=== PATIENT | female | born 1970 | race Caucasian/White ===

== ENCOUNTER 2020-12-15 13:33 | Inpatient (IN) | payer BC ==
[2020-12-15 15:04] LABS: #Lymphocytes 0.5 thou/uL (1.20-3.40); #Monocytes 0.3 thou/uL (0.11-0.59); #Neutrophils 1.6 thou/uL (1.40-6.50); %Basophils 1.8 % (0.0-1.0); %Eosinophils 1.4 % (0.0-10.0); %Lymphocytes 19.2 % (21.0-51.0); %Monocytes 12.8 % (0.0-10.0); %Neutrophils 64.8 % (42.0-75.0); Hemoglobin 13.4 g/dL (12.0-16.0); Mean Corpuscular HGB CONC 31.4 g/dL (32.0-36.0); Mean Corpuscular Hemoglobin 29.7 pg (27.0-31.0); Mean Corpuscular Volume 94.6 fL (78.0-98.0); Platelet Count 182 thou/uL (130-400); Red Blood Cell (RBC) Count 4.52 mill/uL (4.20-5.40); White Blood Cell (WBC) Count 2.5 thou/uL (4.8-10.8)
[2020-12-15 15:19] LABS: ALT (SGPT) 20 U/L (8-55); AST (SGOT) 22 U/L (5-34); Albumin 4.2 g/dL (3.5-5.0); Alkaline Phosphatase 120 U/L (40-110); Anion Gap 16 mmol/L (10-20); BUN (Urea Nitrogen) 10 mg/dL (9.8-20.1); Bilirubin, Total 0.4 mg/dL (0.2-1.2); Calc. Creatinine Clearance 0 mL/min (70-130); Calcium 8.7 mg/dL (7.8-10.44); Carbon Dioxide 24 mmol/L (22-29); Chloride 102 mmol/L (98-107); Globulin 2.8 g/dL (2.4-3.5); Glucose 97 mg/dL (70-105); Potassium 3.4 mmol/L (3.5-5.1); Sodium 139 mmol/L (136-145)
[2020-12-15] MEDS ORDERED: cefTRIAXone\\ROCEPHIN 1 GM VIAL ONE (15:35)
[2020-12-15] MEDS ORDERED: Sodium Chloride 0.9% 100 ML ONE (15:35)
[2020-12-15] MEDS ORDERED: Azithromycin 500 MG VIAL ONE (16:26)
[2020-12-15] MEDS ORDERED: Haloperidol Lactate 5 MG/ML VIAL ONE (17:17)
[2020-12-15 17:52] LABS: SARS-CoV-2 NAA Rapid Test DETECTED (NotDetected)
[2020-12-15 19:18] LABS: Bilirubin Negative (Negative); Blood, Urine Negative (Negative); Clarity Clear (Clear); Glucose, Urine (Dipstick) Negative (Negative); Ketone, Urine 40 mg/dL (Negative); Leukocyte Negative (Negative); Nitrite Negative (Negative); Protein, Urine (Dipstick) Negative (Neg-Trace); Specific Gravity, Urine 1.015 (1.005-1.030); Urobilinogen 0.2 mg/dL (Less than 2)
[2020-12-15 19:19] LABS: Pregnancy Test - Urine (BHCG) Negative (Negative)
[2020-12-15 19:20] LABS: Pregu Control Background? CLEAR/WHITE (CLR/WHITE); Pregu Control Bar Appear? YES (CONTROL BAR); Specific Gravity 1.015 (1.002-1.036)
--- NOTE | 2020-12-15 20:45 | RAD ---
PORTABLE CHEST: 12/15/20 An AP portable film at 1530 is compared with a 07/26/07 study. There is a definite patchy infiltrate i n the left lower lobe. In addition, there is probably a patchy infiltrate beginning in the right mid lung zone and possibly a small one in the left upper lobe. An infectious etiology seems probable. COV ID should be included in the differential diagnosis. There are no effusions. The heart size is normal and there is no congestive change. IMPRESSION: Patchy lung infiltrates, mostly in the left lung, but possibly at least one area on the right. See ab ove. Code T POS: HOME
[2020-12-15 23:17] VITALS: BMI 29.2
[2020-12-15] MEDS ORDERED: HYDROcodone/Acetaminophen 5/325 mg Tablet PO PRN (23:30)
[2020-12-15] MEDS ORDERED: Ondansetron PF 4 MG/2 ML Vial IVP PRN (23:30)
[2020-12-15] MEDS ORDERED: Ondansetron ODT 4 MG TAB SL PRN (23:30)
[2020-12-16] MEDS ORDERED: Acetaminophen 325 MG TAB PO PRN (08:28)
[2020-12-16 12:17] VITALS: BP 126/64; TEMP 98.4
[2020-12-16] MEDS ORDERED: Sodium Chloride 0.9% 1,000 ML IV SCH (12:45)
[2020-12-16] MEDS ORDERED: Albuterol 200 PUFF (6.7GM INHALER) INH PRN (12:45)
[2020-12-16] MEDS ORDERED: Potassium Chloride 20 MEQ TAB PO SCH ×2 (13:00→15:00)
[2020-12-16] MEDS ORDERED: cefTRIAXone\\ROCEPHIN 1 GM in Sodium Chloride 0.9% 100 ML IVPB SCH (15:30)
[2020-12-16] MEDS ORDERED: Azithromycin 500 MG in Sodium Chloride 0.9% 250 ML 250 ML IVPB SCH (16:30)
--- NOTE | 2020-12-16 16:42 | HP ---
CHIEF COMPLAINT: Cough. HISTORY OF PRESENT ILLNESS: The patient is a 50-year-old female who originally developed on December 06 malaise and then December 07 sore throat, which she describes as quite bad. She on December 11 had a telemed visit with her primary care physician and was given a prescription for cough medicine and for the sore throat. She felt better with the sore throat as of December 12; however, that is when the cough started. It was steady at first, but then worsened by December 14 when the cough simply became more frequent and stronger, and shortness of breath was also noted at the time. She went to the ER at the urging of her family yesterday due to the fact that she was failing to improve. She was found to be COVID positive in the ER and had a chest x-ray with patchy infiltrates. It was also noted that her oxygen levels were normal at rest, reportedly around 99%; however, she would have a decrease in her saturation with ambulation down to 84%. She was therefore treated with Rocephin and Zithromax, and admitted initially for observation. Today, she is still coughing, feels exhausted, and is complaining of dizziness or lightheadedness with moving or getting up and changing position. Her cough is nonproductive. There is no sputum or hemoptysis. She did receive one nebulizer treatment in the emergency room and she may have also received a dose of dexamethasone. She was on oxygen overnight via nasal cannula and she does feel better with it. Oxygen saturations were around 97% on 1 L. REVIEW OF SYSTEMS: Positive for headache. Positive for diarrhea. Positive for chest heaviness. No overt chest pain. There is no abdominal pain. She does have general aches she believes from the coughing. No rash. She is rather thirsty, but not as hungry. All others reviewed and negative except as above. PAST MEDICAL HISTORY: Brain tumor encasing the pituitary, [place] disease, diabetes insipidus, osteomyelitis of the facial bones. PAST SURGICAL HISTORY: Brain tumor surgery, gallbladder surgery, , facial surgery related to the osteomyelitis. MEDICATIONS AT HOME: None. SOCIAL HISTORY: Nonsmoker. Alcohol intake level is at 1 to 2 per day; on average, 10 drinks per week or less. She lives with her mother currently as her caregiver as she is on hospice care. She is , with children. 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 PSYCHIATRIC HISTORY: Nonsignificant. FAMILY HISTORY: Mom has diabetes. Dad had Alzheimer's and he actually of COVID this past October 04. PHYSICAL EXAMINATION: VITAL SIGNS: Shows a temperature of 99, pulse 74, blood pressure 128/76, respiratory rate of 18, oxygen saturation 97% on 1 L oxygen nasal cannula. GENERAL: Alert and oriented x3, in no apparent distress. She is somewhat conversationally dyspneic and just appears generally tired, slightly dehydrated-appearing. EARS, NOSE, AND THROAT: Mucous membranes are pink and slightly dry. Pupils are equal and round. HEART: Regular rate and rhythm without ectopy or appreciable murmur. LUNGS: Rales at the bilateral bases without overt rhonchi and no wheezing. ABDOMEN: Soft, nontender, and nondistended with normoactive bowel sounds. No mass appreciated. EXTREMITIES: Warm without clubbing, cyanosis, or edema. NEUROLOGIC: Cranial nerves 2 through 12 are grossly intact. PSYCHIATRIC: Situationally appropriate affect. REVIEW OF DATA: Labs show white blood cell count of 2.5, hemoglobin 13.4, hematocrit 42.7, and platelet level of 182. Electrolytes are normal with the exception of potassium, which was at 3.4. She had a normal lactic acid level at 1.6. Normal liver enzymes. Chest x-ray shows patchy infiltrates both in the left upper and lower lobes and right mid lung singer as well. IMPRESSION: 1. COVID pneumonia. 2. Hypoxemia. 3. Leukopenia. 4. Hypokalemia. PLAN: Admit fully from the beginning of the admission. Follow the CBC and basic metabolic profile. Oxygen therapy. Potassium repletion. DVT prophylaxis with Lovenox. I am going to give her an IV fluid bolus to see if that helps her energy levels and overall condition. I will order some albuterol metered-dose inhaler for as needed, although on current exam, there is no wheezing. I am concerned that bronchospasm could be a common issue, so we will need to have that ready for her. Continue the Rocephin and Zithromax. Further recommendations to follow pending course. Job ID: [id number]
[2020-12-16] MEDS ORDERED: Enoxaparin Sodium 40 MG/0.4 ML SYRINGE SC SCH (21:00)
== END 2020-12-16 16:30 | disposition short-term general hospital (02) | DRG 177 ==
LOC: BURERS 13:33 → BURMED 20:30 → OBSVTOIN 20:30
PROVIDERS: ADMIT Family Medicine; ATTEND Family Medicine
DX: U07.1 COVID-19 (principal); J12.82 Pneumonia due to coronavirus disease 2019; E23.2 Diabetes insipidus; E87.6 Hypokalemia; Z90.49 Acquired absence of other specified parts of digestive tract; Z98.890 Other specified postprocedural states; Z81.8 Family history of other mental and behavioral disorders; Z83.1 Family history of other infectious and parasitic diseases
CPT/HCPCS: 0240U; 36415; 71045; 80053; 81003; 81025; 83605; 83880; 84484; 85025; 93005; J0456; J0696; J1630; J3490; J7050; J7620